=== PATIENT | female | born 1945 | race Hispanic/Latino ===

== ENCOUNTER 2018-01-13 12:56 | Observation (INO) | payer MEDICARE ==
[~2018-01-13] VITALS: Ht 160 cm; Wt 77.1 kg
[2018-01-13 15:23] LABS: BASOPHILS % 0.2 % (0.0-1.0); EOSINOPHILS # (AUTO) 0.1 (0.0-0.4); EOSINOPHILS % 0.8 % (0.0-6.0); LYMPHOCYTES # (AUTO) 1.1 (1.0-3.2); LYMPHOCYTES % 17.1 % (18.0-39.1); MEAN CORPUSCULAR HEMOGLOBIN 26.6 pg (28-32); MEAN CORPUSCULAR HGB CONC 30.7 g/dL (31-35); MEAN CORPUSCULAR VOLUME 86.9 fL (81-99); MONOCYTES # (AUTO) 0.4 (0.2-0.8); MONOCYTES % 6.2 % (4.4-11.3); NEUTROPHILS # (AUTO) 4.7 (2.1-6.9); NEUTROPHILS % 75.4 % (38.7-80.0); PLATELET COUNT 353 x10e3/uL (140-360); RED BLOOD COUNT 2.44 x10e6/uL (3.6-5.1)
[2018-01-13 15:25] LABS: HEMATOCRIT 21.2 % (34.2-44.1); HEMOGLOBIN 6.5 g/dL (12.0-16.0)
[2018-01-13 15:33] LABS: INR 1.05; PROTHROMBIN TIME 12.9 seconds (11.9-14.5)
[2018-01-13 15:34] LABS: PARTIAL THROMBOPLASTIN TIME 33.9 seconds (23.8-35.5)
[2018-01-13 15:40] LABS: ANION GAP 14.2 mmol/L (8-16); BLOOD UREA NITROGEN 18 mg/dL (7-26); BUN/CREATININE RATIO 22 (6-25); CALCIUM 8.6 mg/dL (8.4-10.2); CARBON DIOXIDE 23 mmol/L (22-29); CHLORIDE 101 mmol/L (98-107); CREATININE, SERUM 0.81 mg/dL (0.57-1.11); EST GLOMERULAR FILTRATION RATE > 60 ML/MIN (60-); GLUCOSE 205 mg/dL (74-118); POTASSIUM 4.2 mmol/L (3.5-5.1); SODIUM 134 mmol/L (136-145)
[2018-01-13] MEDS ORDERED: SODIUM CHLORIDE 0.9% 250ML 250 ML IV ONE (16:00)
[2018-01-13 16:18] LABS: BILIRUBIN,URINE NEGATIVE (NEGATIVE); CLARITY,URINE SL CLOUDY (CLEAR); COLOR,URINE YELLOW (YELLOW); KETONES,URINE NEGATIVE (NEGATIVE); LEUKOCYTE ESTERASE ,URINE TRACE (NEGATIVE); NITRITE,URINE POSITIVE (NEGATIVE); PROTEIN,URINE DIPSTICK NEGATIVE (NEGATIVE); URINE UROBILINOGEN 0.2 mg/dL (0.2 - 1)
[2018-01-13 16:27] LABS: BACTERIA,URINE MANY /HPF; EPITHELIAL CELLS,URINE FEW /LPF; RBC,URINE 0-5 /HPF (0-5)
[2018-01-13 16:29] LABS: CREATINE KINASE MB 0.7 ng/mL (0-5.0)
[2018-01-13] MEDS ORDERED: SODIUM CHLORIDE 0.9% 1000ML 1,000 ML IV SCH (16:52)
--- NOTE | 2018-01-13 17:00 | Diagnostic Imaging Report ---
PROCEDURE: A single AP view of the chest. COMPARISON: None. INDICATIONS: DIZZINESS, LOW HEMOMGLOBIN FINDINGS: Lines/tubes: None. Lungs: Limited by low lung volumes and body habitus. Central peribronchovascular thickening/cuffing. Pleura: There is no pleural effusion or pneumothorax. Heart and mediastinum: The heart and the mediastinum are unremarkable. Bones: No acute bony abnormality. IMPRESSION: Central peribronchovascular thickening/cuffing. Underlying infiltrate, especially in the perihilar regions cannot be entirely excluded. Dictated by: Meng Herr M.D. on 01/13/2018 at 17:04 Electronically approved by: Meng Herr M.D. on 01/13/2018 at 17:04
[2018-01-13] MEDS ORDERED: DEXTROSE 50% SYRINGE 50 ML IV PRN (17:45)
[2018-01-13] MEDS ORDERED: CEFTRIAXONE SOD 1 GM VIAL IV SCH (17:45)
[2018-01-13] MEDS ORDERED: ONDANSETRON HCL INJ 2 MG/ML VIAL IV PRN (17:45)
[2018-01-13] MEDS ORDERED: ACETAMINOPHEN 325 MG TAB PO PRN (17:45)
[2018-01-13 17:52] LABS: % IRON SATURATION 6 % (15-50); IRON 21 ug/dL (50-170); TOTAL IRON BINDING CAPACITY 332 ug/dL (261-478); TRANSFERRIN 237 mg/dL (180-382)
[2018-01-13 20:00] VITALS: BP 118/55
[2018-01-13] MEDS ORDERED: SODIUM CHLORIDE 0.9% 250ML 250 ML ONE (20:10)
[2018-01-13 20:35] VITALS: BP 118/55
[2018-01-13] MEDS: INSULIN LISPRO 100 UNIT/1 ML 3ML VIAL SQ SCH (23:27)
[2018-01-14] VITALS: BP 131/60
[2018-01-14 04:00] VITALS: BP 117/56
--- NOTE | 2018-01-14 06:28 | Diagnostic Imaging Report ---
EXAMINATION: CHEST SINGLE (PORTABLE) INDICATION: Cough. COMPARISON: 01/13/2018 FINDINGS: TUBES and LINES: None. LUNGS: Lungs are well inflated. Lungs are clear. There is no evidence of pneumonia or pulmonary edema. PLEURA: No pleural effusion or pneumothorax. HEART AND MEDIASTINUM: The cardiomediastinal silhouette is unremarkable. BONES AND SOFT TISSUES: No acute osseous lesion. Soft tissues are unremarkable. UPPER ABDOMEN: No free air under the diaphragm. IMPRESSION: No acute thoracic abnormality. Signed by: Dr. Gael Marin M.D. on 01/14/2018 6:24 AM
[2018-01-14] MEDS: INSULIN LISPRO 100 UNIT/1 ML 3ML VIAL SQ SCH (07:30)
[2018-01-14 08:09] LABS: BASOPHILS % 0.3 % (0.0-1.0); EOSINOPHILS # (AUTO) 0.1 (0.0-0.4); EOSINOPHILS % 1.2 % (0.0-6.0); HEMATOCRIT 27.9 % (34.2-44.1); LYMPHOCYTES % 15.7 % (18.0-39.1); MEAN CORPUSCULAR HEMOGLOBIN 26.5 pg (28-32); MEAN CORPUSCULAR HGB CONC 32.3 g/dL (31-35); MONOCYTES # (AUTO) 0.6 (0.2-0.8); MONOCYTES % 9.8 % (4.4-11.3); NEUTROPHILS # (AUTO) 4.6 (2.1-6.9); NEUTROPHILS % 71.6 % (38.7-80.0); PLATELET COUNT 324 x10e3/uL (140-360); RED BLOOD COUNT 3.39 x10e6/uL (3.6-5.1); RED CELL DISTRIBUTION WIDTH 17.7 % (11.7-14.4)
[2018-01-14 08:10] LABS: MEAN CORPUSCULAR VOLUME 82.3 fL (81-99)
[2018-01-14 08:22] VITALS: BP 132/60
[2018-01-14 08:28] LABS: ANION GAP 11.4 mmol/L (8-16); BLOOD UREA NITROGEN 19 mg/dL (7-26); BUN/CREATININE RATIO 26 (6-25); CALCIUM 9.2 mg/dL (8.4-10.2); CARBON DIOXIDE 27 mmol/L (22-29); CHLORIDE 107 mmol/L (98-107); CREATININE, SERUM 0.73 mg/dL (0.57-1.11); EST GLOMERULAR FILTRATION RATE > 60 ML/MIN (60-); GLUCOSE 128 mg/dL (74-118); POTASSIUM 4.4 mmol/L (3.5-5.1); SODIUM 141 mmol/L (136-145)
[2018-01-14 10:32] VITALS: BP 132/60
[2018-01-14] MEDS ORDERED: IRON SUCROSE 100 MG in SODIUM CHLORIDE 0.9% 100 ML 100 ML IV ONE (10:45)
[2018-01-14] MEDS ORDERED: CEFTRIAXONE SOD 1 GM VIAL IM NR (10:45)
[2018-01-14 12:40] VITALS: BP 135/61
[2018-01-14] MEDS ORDERED: KEFLEX500 MG PO (14:06)
--- NOTE | 2018-01-14 18:03 | Discharge Summary ---
PRIMARY CARE DOCTOR: Karen Cheatham MD, with [facility]. 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 SECONDARY DIAGNOSES 1. Asymptomatic, gram-negative liz pyuria. 2. Hypertension. 3. Diabetes. 4. Iron deficiency. HUMANITIES INSTRUCTOR: None. PROCEDURES/STUDIES PERFORMED: Two units of packed red blood cells. HISTORY: Per [facility]. HOSPITAL COURSE: The patient was admitted with a hemoglobin of 6.5. After 2 units, her hemoglobin is 9.0. Her last blood transfusion was 3 months ago. Per the daughter at the bedside, 1 AVM, arteriovenous malformation, was cauterized last month by her GI doctor. The patient was also found to have iron deficiency anemia and will be given intravenous iron as well. The patient has asymptomatic pyuria. Urine culture so far is gram-negative liz. She will receive 1 dose of IV Rocephin and home on 5 more days of Keflex. The patient was seen and examined today. CONDITION ON DISCHARGE: Stable. DISCHARGE MEDICATIONS: Please see medication reconciliation form. CHRISTINA SHI M.D. Job#: [id number] cc:KAREN CHEATHAM MD
== END 2018-01-14 14:25 | disposition home or self-care (01) ==
LOC: ER 12:56 → ERHOLD 17:22 → IMCU 18:15
PROVIDERS: ADMIT Internal Medicine; ATTEND Internal Medicine
DX: D50.0 Iron deficiency anemia secondary to blood loss (chronic) (principal); K55.21 Angiodysplasia of colon with hemorrhage; N39.0 Urinary tract infection, site not specified; B96.89 Other specified bacterial agents as the cause of diseases classified elsewhere; I10 Essential (primary) hypertension; E11.9 Type 2 diabetes mellitus without complications; F03.90 Unspecified dementia, unspecified severity, without behavioral disturbance, psychotic disturbance, mood disturbance, and anxiety; B96.20 Unspecified Escherichia coli [E. coli] as the cause of diseases classified elsewhere
CPT/HCPCS: 36415 ×2; 36430; 71045 ×2; 80048 ×2; 81001; 82550; 82553; 82948 ×2; 83540; 84466; 84484; 85025 ×2; 85610; 85730; 86850; 86900; 86920; 87086; 87186; 93005; 99284; G0378 ×2; J0696 ×2; J1756; J7050; P9016 ×2